=== PATIENT | male | born 1930 ===

== ENCOUNTER 2018-07-19 20:36 | Emergency (ER) | payer SELFPAY ==
[~2018-07-19] VITALS: Ht 170.2 cm; Wt 79.4 kg
--- NOTE | 2018-07-19 21:22 | ED GI ---
General Stated Complaint: DIARRHEA;COUGHING; Source of Information: Patient Exam Limitations: No Limitations History of Present Illness Date Seen by Provider: Jul 19, 2018 Time Seen by Provider: 21:19 Initial Comments This elderly non-Turkmen speaking gentleman brought to the emergency room by his son-in-law who is very fluent in Turkmen with reports of bloody diarrhea for about 3 days with a cough for about one week. [facility] and [facility] labs done and was told everything looked normal. He moved here to [facility] from [place] and February of this year. 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 The feeding tube was removed in 2016. Timing/Duration: 2-3 Days Severity/Quality: Moderate Radiation: No Radiation Associated Symptoms: No Nausea/Vomiting Allergies and Home Medications Allergies Coded Allergies: No Known Drug Allergies (Unverified , 07/19/18) Home Medications Loperamide HCl 2 Mg Capsule, 2 MG PO Q6H PRN for DIARRHEA Prescribed by: FRANTZ HWANG on 07/19/182238 Metronidazole 500 Mg Tablet, 500 MG PO BID Prescribed by: FRANTZ HWANG on 07/19/182238 Sulfamethoxazole/Trimethoprim 1 Each Tablet, 0.5 EACH PO BID Prescribed by: FRANTZ HWANG on 07/19/182238 Patient Home Medication List Home Medication List Reviewed: Yes Review of Systems Review of Systems Constitutional: see HPI; No fever; other (review of systems obtained from family) Respiratory: See HPI, Cough Cardiovascular: No Symptoms Reported Gastrointestinal: See HPI; Denies Abdominal Pain; Diarrhea Genitourinary: No Symptoms Reported Musculoskeletal: no symptoms reported Skin: no symptoms reported Psychiatric/Neurological: No Symptoms Reported Endocrine: No Symptoms Reported Past Uasdegj-Yvfkme-Ynrdtw Hx Patient Social History Recent Foreign Travel: No Contact w/Someone Who Travel: No Physical Exam Vital Signs Vital Signs - First Documented 07/19/18 21:11 Temp 98.2 Pulse 70 Resp 18 B/P (MAP) 141/82 (101) Pulse Ox 100 O2 Delivery Room Air Capillary Refill : Height/Weight/BMI Height: '" Weight: lbs. oz. kg; BMI Method: General Appearance: WD/WN, thin, other (elderly and frail) Neck: non-tender, full range of motion Respiratory: no respiratory distress, no accessory muscle use Gastrointestinal: normal bowel sounds, non tender, soft Extremities: normal range of motion, non-tender Neurologic/Psychiatric: alert Exam Comments Bedside fecal occult blood test was a good sample as there was a fair amount of stool collected. This was negative for fecal occult blood. Progress/Results/Core Measures Results/Orders Lab Results Laboratory Tests Test 07/19/18 21:30 Range/Units White Blood Count 6.5 4.3-11.0 10^3/uL Red Blood Count 3.20 L 4.35-5.85 10^6/uL Hemoglobin 9.9 L 13.3-17.7 G/DL Hematocrit 30 L 40-54 % Mean Corpuscular Volume 93 80-99 FL Mean Corpuscular Hemoglobin 31 25-34 PG Mean Corpuscular Hemoglobin Concent 33 32-36 G/DL Red Cell Distribution Width 15.1 H 10.0-14.5 % Platelet Count 304 130-400 10^3/uL Mean Platelet Volume 11.1 H 7.4-10.4 FL Neutrophils (%) (Auto) 52 42-75 % Lymphocytes (%) (Auto) 32 12-44 % Monocytes (%) (Auto) 12 0-12 % Eosinophils (%) (Auto) 4 0-10 % Basophils (%) (Auto) 0 0-10 % Neutrophils # (Auto) 3.4 1.8-7.8 X 10^3 Lymphocytes # (Auto) 2.1 1.0-4.0 X 10^3 Monocytes # (Auto) 0.7 0.0-1.0 X 10^3 Eosinophils # (Auto) 0.2 0.0-0.3 10^3/uL Basophils # (Auto) 0.0 0.0-0.1 10^3/uL Sodium Level 135 135-145 MMOL/L Potassium Level 5.7 H 3.6-5.0 MMOL/L Chloride Level 111 H 98-107 MMOL/L Carbon Dioxide Level 13 L 21-32 MMOL/L Anion Gap 11 5-14 MMOL/L Blood Urea Nitrogen 44 H 7-18 MG/DL Creatinine 2.32 H 0.60-1.30 MG/DL Estimat Glomerular Filtration Rate 27 BUN/Creatinine Ratio 19 Glucose Level 89 70-105 MG/DL Calcium Level 8.7 8.5-10.1 MG/DL Corrected Calcium 9.1 8.5-10.1 MG/DL Total Bilirubin 0.3 0.1-1.0 MG/DL Aspartate Amino Transf (AST/SGOT) 31 5-34 U/L Alanine Aminotransferase (ALT/SGPT) 11 0-55 U/L Alkaline Phosphatase 56 40-136 U/L Total Protein 7.3 6.4-8.2 GM/DL Albumin 3.5 3.2-4.5 GM/DL My Orders Orders - FRANTZ HWANG APRN Cbc With Automated Diff (07/19/18 21:18) Comprehensive Metabolic Panel (07/19/18 21:18) Ua Culture If Indicated (07/19/18 21:18) Chest 1 View, Ap/Pa Only (07/19/18 21:18) Iv Heplock-Insert (Order) (07/19/18 21:18) Lactated Ringers (Lr 1000 Ml Iv Solution (07/19/18 21:30) Ct Abdomen/Pelvis Wo (07/19/18 21:51) Vital Signs/I&O 07/19/18 21:11 Temp 98.2 Pulse 70 Resp 18 B/P (MAP) 141/82 (101) Pulse Ox 100 O2 Delivery Room Air Departure Communication (Admissions) 2215-Lab does report some hemolysis on chemistry panel. 2246- Spoke with Dr. Siddiqui. The patient is in fact established with Dr. Cameron. She agrees with plan to treat outpatient with Cipro and Flagyl, Imodium and oral fluid replenishment. Impression Primary Impression: Diarrhea Additional Impressions: Bronchitis Proctitis Disposition: HOME, SELF-CARE Condition: Stable Departure-Patient Inst. Decision time for Depature: 22:35 Patient Instructions: Proctitis Add. Discharge Instructions: 1. Antibiotics as directed [facility]. [facility]. Take the antidiarrheal as directed. Return to ER for any concerns. Drink plenty of fluids. Pedialyte is a great choice. Water is just fine 2. Scripts Loperamide HCl (Imodium A-D) 2 Mg Capsule 2 MG PO Q6H PRN for DIARRHEA, #10 CAP Prov: FRANTZ HWANG APRN 07/19/18 Metronidazole (Metronidazole) 500 Mg Tablet 500 MG PO BID, #14 TAB Prov: FRANTZ HWANG APRN 07/19/18 Sulfamethoxazole/Trimethoprim (Bactrim Ds Tablet) 1 Each Tablet 0.5 EACH PO BID, #7 TAB Prov: FRANTZ HWANG APRN 07/19/18 Copy Copies To 1: IRMA SIDDIQUI PETER J APRN Jul 19, 2018 21:22
[2018-07-19] MEDS ORDERED: LACTATED RINGERS 1,000 ML IV SCH (21:30)
[2018-07-19 21:37] LABS: BASOPHILS % (AUTO) 0 % (0-10); EOSINOPHILS # (AUTO) 0.2 10^3/uL (0.0-0.3); EOSINOPHILS % (AUTO) 4 % (0-10); HEMATOCRIT 30 % (40-54); HEMOGLOBIN 9.9 G/DL (13.3-17.7); LYMPHOCYTES # (AUTO) 2.1 X 10^3 (1.0-4.0); LYMPHOCYTES % (AUTO) 32 % (12-44); MEAN CORPUSCULAR HEMOGLOBIN 31 PG (25-34); MEAN CORPUSCULAR HGB CONC 33 G/DL (32-36); MEAN CORPUSCULAR VOLUME 93 FL (80-99); MEAN PLATELET VOLUME 11.1 FL (7.4-10.4); MONOCYTES # (AUTO) 0.7 X 10^3 (0.0-1.0); MONOCYTES % (AUTO) 12 % (0-12); NEUTROPHILS # (AUTO) 3.4 X 10^3 (1.8-7.8); NEUTROPHILS % (AUTO) 52 % (42-75); PLATELET COUNT 304 10^3/uL (130-400); RED CELL DISTRIBUTION WIDTH 15.1 % (10.0-14.5); WHITE BLOOD COUNT 6.5 10^3/uL (4.3-11.0)
[2018-07-19 21:56] LABS: ALBUMIN 3.5 GM/DL (3.2-4.5); BILIRUBIN,TOTAL 0.3 MG/DL (0.1-1.0); CALCIUM 8.7 MG/DL (8.5-10.1); CREATININE SERUM 2.32 MG/DL (0.60-1.30); POTASSIUM 5.7 MMOL/L (3.6-5.0); TOTAL PROTEIN 7.3 GM/DL (6.4-8.2)
[2018-07-19] MEDS ORDERED: SULF1TAB35 PO (22:39)
[2018-07-19] MEDS ORDERED: METR-197 PO (22:39)
[2018-07-19] MEDS ORDERED: LOPE-145 PO (22:39)
--- NOTE | 2018-07-19 22:52 | Diagnostic Imaging Report ---
EXAMINATION: Single frontal view of the chest. INDICATION: Cough and congestion. COMPARISON: None. FINDINGS: Mild bibasilar atelectasis and blunting of the costophrenic angles. The lungs are otherwise clear. Pulmonary vasculature is normal. No pneumothorax. The cardiomediastinal silhouette is normal. No acute osseous abnormality. IMPRESSION: Mild bibasilar atelectasis with suggestion of trace pleural effusions. No focal consolidation to suggest pneumonia. Dictated by: Dictated on workstation # [id number]
[2018-07-19] MEDS ORDERED: RX-ACETAMINOPHEN/CODEINE TAB PPK #4 ONE (22:58)
[2018-07-19] MEDS ORDERED: LOPERAMIDE 2 MG (IMODIUM) CAP PO PRN (23:00)
[2018-07-19] MEDS ORDERED: CIPROFLOXACIN 500 MG (CIPRO) TABLET PO SCH (23:00)
[2018-07-19] MEDS ORDERED: metroNIDAZOLE 500 MG (FLAGYL) TAB PO ONE (23:00)
[2018-07-20 00:10] VITALS: BP 114/75
[2018-07-20] MEDS ORDERED: RX-ACETAMINOPHEN/CODEINE TAB PPK #4 PO SCH (06:00)
--- NOTE | 2018-07-20 06:20 | Diagnostic Imaging Report ---
PROCEDURE: CT abdomen and pelvis without contrast. TECHNIQUE: Multiple contiguous axial images were obtained through the abdomen and pelvis without the use of intravenous contrast. INDICATION: Abdominal pain. FINDINGS: There is cardiomegaly. The lung bases are clear. The liver is normal in size without focal lesions. The gallbladder is unremarkable. There is no biliary ductal dilatation. The spleen is normal. The pancreas and adrenal glands are unremarkable. Kidneys are normal in appearance. Aorta is nonaneurysmal. Bowel gas pattern is nonspecific. There is no free air. There is no ascites. There is some focal mucosal thickening in the rectum. Bladder is normal. There are degenerative changes in the spine. IMPRESSION: Focal mucosal thickening in the rectum suspect for proctitis. Otherwise unremarkable CT abdomen and pelvis Dictated by: Dictated on workstation # [id number]
== END 2018-07-20 00:10 | disposition home or self-care (01) ==
LOC: ER 20:43
DX: K51.20 Ulcerative (chronic) proctitis without complications (principal); J40 Bronchitis, not specified as acute or chronic; F32.9 Major depressive disorder, single episode, unspecified; E11.9 Type 2 diabetes mellitus without complications; Z98.890 Other specified postprocedural states
CPT/HCPCS: 36415; 71045; 74176; 80053; 85025